=== PATIENT | female | born 1985 | race Asian ===

== ENCOUNTER 2021-10-13 11:12 | Outpatient (CLI) | payer OTHER, SELFPAY ==
[2021-10-13 13:46] LABS: Hematocrit 43.7 % (37.0-47.0); Hemoglobin 14.1 g/dL (12.0-15.0); Mean Corpuscular HGB Conc 32.3 g/dl (32-36); Mean Corpuscular Hemoglobin 30.3 pg (26-34); Mean Corpuscular Volume 93.8 fl (80-100); Mean Platelet Volume 11.8 fl (7.4-10.4); Platelet Count Result 240 k/mm3 (150-375); Red Blood Count 4.66 M/mm3 (4.2-5.4); Red Cell Distribution Width 13.1 % (11.5-14.5); White Blood Count 6.8 K/mm3 (4.5-10.0)
[2021-10-13 14:21] LABS: Anion Gap 8 mmol/L (8-16); Blood Urea Nitrogen 18 mg/dL (7-17); Calcium 9.5 mg/dL (8.4-10.2); Carbon Dioxide 26 mmol/L (22-30); Chloride 103 mmol/L (98-107); Cholesterol 194 mg/dL (0-200); Estimated Glomerular Filt Rate > 60; Glucose 94 mg/dL (65-110); HDL Direct 61 mg/dL; Potassium 3.8 mmol/L (3.4-5.0); Sodium 137 mmol/L (137-145); Triglycerides 163 mg/dL (<150)
[2021-10-13 14:31] LABS: LDL Cholesterol Direct 77 mg/dL
[2021-10-13 14:52] LABS: Thyroid Stimulating Hormone 0.904 uIU/mL (0.465-4.680)
[2021-10-15 20:30] LABS: Testosterone Total 15 ng/dL (2-45)
[2021-10-15 21:51] LABS: Prolactin 5.8 ng/mL (***)
== END 2021-10-13 11:13 | disposition home or self-care (01) ==
LOC: ANHWCLAB 11:23
PROVIDERS: Visit Provider Nurse Practitioner Family
DX: N93.9 Abnormal uterine and vaginal bleeding, unspecified (principal)
CPT/HCPCS: 36415; 80048; 80061; 84146; 84403; 84443; 85027